=== PATIENT | male | born 2000 | race Caucasian/White ===

== ENCOUNTER 2020-09-10 15:24 | Emergency (ER) | payer OTHER ==
[~2020-09-10] VITALS: Ht 180.3 cm; Wt 68.0 kg
[~2020-09-10 15:24] MED LIST: NOHOMEMEDICATIONS
[2020-09-10 16:35] LABS: URINE BILIRUBIN NEGATIVE (Negative); URINE BLOOD NEGATIVE (Negative); URINE CLARITY CLOUDY; URINE COLOR YELLOW; URINE GLUCOSE-RANDOM NEGATIVE (Negative); URINE KETONES NEGATIVE (Negative); URINE LEUKOCYTES-REFLEX NEGATIVE (Negative); URINE NITRITE-REFLEX NEGATIVE (Negative); URINE PROTEIN NEGATIVE (Negative); URINE UROBILINOGEN 0.2 E.U./dl (0.2-1.0)
[2020-09-10 16:43] LABS: SQUAMOUS 0-3 Few /LPF (0-3)
[2020-09-10 16:44] LABS: AMORPHOUS PHOSPHATES Moderate /LPF (None Seen); BACTERIA-REFLEX >30 Many /HPF (None Seen); CASTS None Seen /LPF (None Seen); CRYSTALS None Seen /LPF (None Seen); MUCUS None Seen strn/LPF (None Seen); URINE RBC None Seen /HPF (0-2); URINE WBC-REFLEX None Seen /HPF (0-5)
[2020-09-10] MEDS ORDERED: DOXYCYCLINE 10100 M2 PO (17:23)
[2020-09-10 17:30] VITALS: BP 139/77
== END 2020-09-10 17:32 | disposition home or self-care (01) ==
LOC: M.ERS 15:24
PROVIDERS: Emergency Medicine Emergency Medical Services
DX: N34.2 Other urethritis (principal); R09.89 Other specified symptoms and signs involving the circulatory and respiratory systems; F17.210 Nicotine dependence, cigarettes, uncomplicated